=== PATIENT | male | born 1960 | race Hispanic/Latino ===

== ENCOUNTER 2020-09-03 09:39 | Emergency (ER) | payer MEDICARE ==
[~2020-09-03 09:39] MED LIST: GLYB1TAB32 PO; NAPR-1023 PO; [UNRECOGNIZED DRUG - OTHER] PO
[2020-09-03] MEDS ORDERED: ACETAMINOPHEN 325 MG TAB ONE (10:09)
[2020-09-03 10:15] LABS: BASOPHILS % (AUTO) 0.8 % (0.0-5.0); EOSINOPHILS % (AUTO) 1.9 % (0.0-8.0); HEMATOCRIT 39.4 % (42-54); LYMPHOCYTES % (AUTO) 26.3 % (21.0-51.0); MEAN CORPUSCULAR HEMOGLOBIN 29.1 pg (27.0-33.0); MEAN CORPUSCULAR HGB CONC 34.5 g/dL (32.0-36.0); MEAN CORPUSCULAR VOLUME 84.2 fL (79-99); MONOCYTES % (AUTO) 7.9 % (3.0-13.0); NEUTROPHILS % (AUTO) 62.8 % (40.0-77.0); PLATELET COUNT (AUTO) 252 K/uL (130-400); RED BLOOD CELL COUNT(AUTO) 4.68 MIL/uL (4.50-6.20); RED CELL DISTRIBUTION WIDTH 12.3 % (11.0-15.5); WHITE BLOOD COUNT (AUTO) 11.4 K/uL (4.8-10.8)
[2020-09-03 10:25] LABS: CREATININE 0.9 mg/dL (0.5-1.5); POTASSIUM 4.2 mmol/L (3.5-5.1)
[2020-09-03 10:30] LABS: ALBUMIN 4.2 g/dL (3.5-5.0); BILIRUBIN,TOTAL 0.3 mg/dL (0.2-1.0); TOTAL PROTEIN, SERUM 7.5 g/dL (6.0-8.3)
== END 2020-09-03 11:11 | disposition home or self-care (01) ==
LOC: EDH 09:39
DX: R51.9 Headache, unspecified (principal); R11.2 Nausea with vomiting, unspecified; H53.8 Other visual disturbances; I10 Essential (primary) hypertension; E11.9 Type 2 diabetes mellitus without complications; E78.5 Hyperlipidemia, unspecified; Z72.0 Tobacco use; Z90.49 Acquired absence of other specified parts of digestive tract; Z98.890 Other specified postprocedural states
CPT/HCPCS: 36415; 70450; 80053; 85025

== ENCOUNTER 2024-03-20 09:45 | Emergency (ER) | payer MEDICARE ==
[~2024-03-20] VITALS: Ht 167.6 cm; Wt 74.4 kg
[~2024-03-20 09:45] MED LIST changes: +GLYB-173 PO; -GLYB1TAB32 PO
[2024-03-20] MEDS ORDERED: KETO10TA2 PO (10:33)
--- NOTE | 2024-03-20 10:35 | ERN ---
General Chief Complaint: Earache Stated Complaint: LEFT EAR PAIN X 2 WEEKS Time Seen by MD: 09:49 Time Seen by Midlevel: 09:49 Source: patient History of Present Illness Initial Comments Patient is a 64-year-old male presenting with left ear pain that has been ongoing for two weeks. Patient states that approximately 14 days ago he was seen by a doctor in [place] diagnosed him with a ear infection and was start him on antibiotics. The course lasted seven days however his pain did not improve so he went to go see his primary care doctor seven days ago. He was given eardrops along with more antibiotics with little to no relief. This morning he reports going to his ENT specialist who states that he can not see him until July so he decided to report to the ER for further evaluation. Patient states he was these intermittent episodes of left ear pain that resolve on their own. Denies any abnormal discharge or hearing loss. Denies any neck pain, fever, chills, or any other symptom at this time. Allergies: Coded Allergies: No Known Drug Allergies (Verified Allergy, Unknown, 08/21/14) Home Meds Active Scripts Ketorolac Tromethamine (Ketorolac Tromethamine) 10 Mg Tablet, 10 MG PO BID for 5 Days, #10 TAB Prov:CECILIA SR 03/20/24 Reported Medications Glyburide/Metformin HCl (Glyburide-Metformin 5-500 mg) 1 Each Tablet, 1 EACH PO TIDMEALS, TAB 01/07/16 [Lesbest] No Conflict Check, PO HS 01/07/16 Naproxen (Naproxen) 500 Mg Tablet, 500 MG PO BID, TAB 01/07/16 Past Medical History Past Medical History: Diabetes-Type II, High Cholesterol, Hypertension Medical History Other: GASTROPARESIS Past Surgical History: Cholecystectomy ROS Dictation CONSTITUTIONAL: Negative except for HPI HEAD/FACE: Negative except for HPI EENT: Negative except for HPI RESPIRATORY: Negative except for HPI GASTROINTESTINAL/ABDOMINAL: Negative except for HPI GENITOURINARY: Negative except for HPI MUSCULOSKELETAL: Negative except for HPI INTEGUMENTARY: Negative except for HPI NEUROLOGICAL/PSYCH: Negative except for HPI HEMATOLOGIC/LYMPHATIC: Negative except for HPI All Systems Negative, Except as noted above. 13 point review of systems assessed and all negative except for above. Physical Exam Physical Exam Dictation Vital Signs reviewed General Appearance: Alert, oriented x 3, no acute distress, well developed, nourished. Head and Face: non-traumatic. Eyes: PERRL, pink conjunctivas, eyelid no trauma, anterior chamber with arcus senilis. Ears: Pinnas intact and no signs of trauma or erythema ear canals clear and no discharge TM no erythema Nose: No discharge, no bleeding. Oropharynx: Mouth normal, tongue pink, pharynx clear,no erythema, tonsils no exudates, no abscesses noted, mucous membrane moist Neck: Supple, non-tender, no thyromegaly, no masses, no JVD, no bruits Breast:Deferred Chest:No tenderness, no crepitus, no paradoxical movement, no retractions Lungs:Clear, well-ventilated, symmetric, no rales, no wheezing, no rhonchi, no stridor, good breath sounds bilaterally Heart: Regular rate, regular rhythm, no murmur, no gallops Vascular: no peripheral edema, Abdomen: Soft, positive bowel sounds, nondistended, no guarding, nontender, no rebound, no masses no hepatomegaly, no splenomegaly, no Arnett's sign, no hernias. Rectal: Deferred Genital: Deferred Neurological: Normal speech, motor function intact, sensory function intact Musculoskeletal: Neck nontender, full range of motion, back nontender, full range of motion, Extremities: nontender, full range of motion Skin: Color pink, dry, no turgor, no rash, no lacerations, no abrasions, no contusions. Lymphatic: Deferred MDM MDM: Patient is a 64-year-old male presenting with left ear pain that has been ongoing for two weeks. Patient states that approximately 14 days ago he was seen by a doctor in [place] diagnosed him with a ear infection and was start him on antibiotics. The course lasted seven days however his pain did not improve so he went to go see his primary care doctor seven days ago. He was given eardrops along with more antibiotics with little to no relief. This morning he reports going to his ENT specialist who states that he can not see him until [facility] so he decided to report to the ER for further evaluation. Patient states he was these intermittent episodes of left ear pain that resolve on their own. Denies any abnormal discharge or hearing loss. Denies any neck pain, fever, chills, or any other symptom at this time. On physical examination patient has no cervical lymphadenopathy. His external ear is unremarkable. There was no evidence of otitis media or otitis externa. 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 I advised that I can give him something for pain but he will need to see an ENT specialist for this. Have given him two options. Patient will need to follow up outpatient. Patient is agreeable with this plan and is comfortable for discharge. Differential diagnosis: Otitis media, otitis externa, ear pain There are no social concerns with this patient. Prescription drug management Prescriptions will include: Toradol Medical management and examination interpretation discussions were had by me with other qualified healthcare professionals as indicated for the patient's care. ED Course Vital Signs Date Time Temp Pulse Resp B/P (MAP) Pulse Ox O2 Delivery O2 Flow Rate FiO2 03/20/24 09:47 97.9 72 16 121/68 99 Room Air 0 DX & DISP Disposition: Discharge Departure Impression: Primary Impression: Left ear pain Condition: Stable Scripts Ketorolac Tromethamine (Ketorolac Tromethamine) 10 Mg Tablet 10 MG PO BID for 5 Days, #10 TAB Prov: CECILIA SR 03/20/24 Additional Instructions: Your physical examination is unremarkable. There was no evidence of a otitis media or otitis externa. You will need to see an ENT specialist for further evaluation. If you develop any new or worsening symptoms please return to the ER for further evaluation Referrals: JESE PALOMARES (PCP) BULMARO LINARES III, MD, JAMES T MD I have reviewed the case, and I agree with, Diagnosis and Plan I PERFORMED THE SUBSTANTIVE PORTION OF THE VISIT. I HAVE REVIEWED AND PERSONALLY MADE AND APPROVE THE MANAGEMENT PLAN THAT IS DOCUMENTED IN THE NOTE BY MYSELF OR THE CHARITY. I ACKNOWLEDGE FOR RESPONSIBILITY FOR THE PATIENT'S MANAGEMENT PLAN. CECILIA SR Mar 20, 2024 10:35
[2024-03-20 10:41] VITALS: BP 125/65; PULSE 72; RESP 16; TEMP 97.9; O2SAT 99
== END 2024-03-20 10:57 | disposition home or self-care (01) ==
LOC: EDH 09:45
DX: H92.02 Otalgia, left ear (principal); E11.9 Type 2 diabetes mellitus without complications; E78.00 Pure hypercholesterolemia, unspecified; I10 Essential (primary) hypertension; Z79.899 Other long term (current) drug therapy; Z90.49 Acquired absence of other specified parts of digestive tract
CPT/HCPCS: 99283